=== PATIENT | male | born 1965 | race Caucasian/White ===

== ENCOUNTER 2017-06-04 09:47 | Emergency (ER) | payer SELFPAY ==
[~2017-06-04] VITALS: Ht 198.1 cm; Wt 149.4 kg
[~2017-06-04 09:47] MED LIST: GEODON20 MG PO; GEODON80 MG PO; LIDODERM 5% P1 PATCH TD; MOBIC7.5 MG PO; NAPROSYN500 MG PO; NAPROXEN500 MG PO; RISPERIDONE3 MG PO; TRAZODONE HCL50 MG PO; ZIPRASIDONE HCL80 MG PO
[2017-06-04 10:46] LABS: EOSINOPHIL (%) 2.5 % (0-5); EOSINOPHIL COUNT 0.2 K/uL (0-0.3); HEMATOCRIT 38.8 % (38.0-50.0); IMMATURE GRANULOCYTE (%) 0.2 % (0.0-0.7); INSTRUMENT ABS NEUTROPHIL CT 4.8 K/uL; LYMPHOCYTE COUNT 2.5 K/uL (1.0-2.8); MCH 26.6 PG (29.0-34.0); MCHC 32.5 G/DL (30.0-36.0); MEAN PLAT.VOLUME 11.5 uM^3 (9.0-12.4); MONOCYTE (%) 8.1 % (3-12); MONOCYTE COUNT 0.7 K/uL (0-0.8); NEUTROPHIL (%) 58.6 % (45-76); NEUTROPHIL COUNT 4.8 K/uL (1.8-6.4); PLATELET COUNT 201 K/uL (156-360); RBC DIS.WIDTH-CV 14.8 % (11.8-14.6); RBC DIS.WIDTH-SD 44.5 % (39-53); RED BLOOD COUNT 4.73 M/uL (4.00-5.50); WHITE BLOOD COUNT 8.2 K/uL (4.1-10.2)
[2017-06-04 10:55] LABS: CHLORIDE 110 mEq/L (99-109); POTASSIUM 3.2 mEq/L (3.7-5.4); SODIUM 139 mEq/L (136-147)
[2017-06-04 10:57] LABS: GLUCOSE 126 mg/dL (70-99)
[2017-06-04 10:58] LABS: ANION GAP 6 MEQ/L (2-14)
[2017-06-04 10:59] LABS: TOTAL BILIRUBIN 0.7 mg/dL (0.0-1.0)
[2017-06-04 11:00] LABS: SERUM ETHYL ALCOHOL < 10 mg/dL
[2017-06-04 11:01] LABS: ALKALINE PHOSPHATASE 68 IU/L (3-129); GFR ESTIMATE (CALCULATED) > 59 mL/min/
[2017-06-04 11:02] LABS: UREA NITROGEN (BUN) 10 mg/dL (9-23)
[2017-06-04 11:45] LABS: AMPHETAMINE NEGATIVE (500 ng/mL); BARBITURATES NEGATIVE (200 ng/mL); BENZODIAZEPINES NEGATIVE (150 ng/mL); COCAINE NEGATIVE (150 ng/mL); INTERNAL CONTROLS VALID? YES; METHADONE NEGATIVE (200 ng/mL); METHAMPHETAMINE NEGATIVE (500 ng/mL); OPIATES (MORPHINE) NEGATIVE (100 ng/mL); OXYCODONE NEGATIVE (100 ng/mL); PHENCYCLIDINE NEGATIVE (25 ng/mL); PROPOXYPHENE NEGATIVE (300 ng/mL); THC CANNABINOIDS NEGATIVE (50 ng/mL); TRICYCLIC ANTIDEPRESSANTS NEGATIVE (300 ng/mL)
[2017-06-04 11:53] VITALS: BP 156/79
== END 2017-06-04 11:56 | disposition home or self-care (01) ==
LOC: EME 09:47
PROVIDERS: Emergency Medicine
DX: E87.6 Hypokalemia (principal); R10.9 Unspecified abdominal pain
CPT/HCPCS: 74022; 80053; 85025; 99281; 99283; G0480

== ENCOUNTER 2017-06-17 13:06 | Inpatient (IN) | payer OTHER ==
[~2017-06-17] VITALS: Ht 198.1 cm; Wt 136.5 kg
[2017-06-17 15:05] LABS: BASOPHIL COUNT 0.1 K/uL (0-0.1); EOSINOPHIL (%) 0.5 % (0-5); HEMATOCRIT 44.5 % (38.0-50.0); IMMATURE GRANULOCYTE (%) 0.4 % (0.0-0.7); INSTRUMENT ABS NEUTROPHIL CT 4.7 K/uL; LYMPHOCYTE COUNT 2.7 K/uL (1.0-2.8); MCH 26.7 PG (29.0-34.0); MCHC 32.6 G/DL (30.0-36.0); MCV 81.8 FL (86-99); MEAN PLAT.VOLUME 11.3 uM^3 (9.0-12.4); MONOCYTE (%) 8.7 % (3-12); MONOCYTE COUNT 0.7 K/uL (0-0.8); NEUTROPHIL COUNT 4.7 K/uL (1.8-6.4); PLATELET COUNT 224 K/uL (156-360); RBC DIS.WIDTH-CV 15.1 % (11.8-14.6); RBC DIS.WIDTH-SD 45.1 % (39-53); RED BLOOD COUNT 5.44 M/uL (4.00-5.50); WHITE BLOOD COUNT 8.2 K/uL (4.1-10.2)
[2017-06-17 15:13] LABS: CHLORIDE 108 mEq/L (99-109); POTASSIUM 3.6 mEq/L (3.7-5.4); SODIUM 139 mEq/L (136-147)
[2017-06-17 15:15] LABS: GLUCOSE 122 mg/dL (70-99)
[2017-06-17 15:17] LABS: ANION GAP 12 MEQ/L (2-14)
[2017-06-17 15:18] LABS: SERUM ETHYL ALCOHOL < 10 mg/dL
[2017-06-17 15:19] LABS: GFR ESTIMATE (CALCULATED) > 59 mL/min/
[2017-06-17 15:21] LABS: UREA NITROGEN (BUN) 8 mg/dL (9-23)
[2017-06-17 15:22] LABS: SALICYLATE < 5.0 MG/DL (15-30)
[2017-06-17] MEDS ORDERED: FLUOXETINE HCL40 MG PO (15:28)
[2017-06-17] MEDS ORDERED: ZIPRASIDONE HCL60 MG PO (15:29)
[2017-06-17] MEDS ORDERED: GEODON80 MG PO (18:31)
[2017-06-17] MEDS ORDERED: PROMETHAZINE HC25 M1 PO (18:33)
[2017-06-17 19:03] VITALS: BP 131/83
[2017-06-18 07:53] VITALS: BP 127/72
[2017-06-18 15:58] VITALS: BP 119/56
[2017-06-19 07:41] VITALS: BP 107/50
[2017-06-19 15:27] VITALS: BP 97/54
[2017-06-19 18:23] VITALS: BP 123/67
[2017-06-20 07:42] VITALS: BP 123/72
[2017-06-20 15:35] VITALS: BP 110/63
[2017-06-21 07:43] VITALS: BP 129/87
[2017-06-21 15:13] VITALS: BP 123/56
[2017-06-22 08:09] VITALS: BP 142/72
[2017-06-22] MEDS ORDERED: GEODON80 MG PO (10:24)
[2017-06-22] MEDS ORDERED: PANTOPRAZOLE SO40 MG PO (10:24)
== END 2017-06-22 11:11 | disposition home or self-care (01) | DRG 885 ==
LOC: EME 13:06 → 1WEST 14:29 → EDOF 14:29 → ENRESERV 17:37 → 1WEST 17:46
PROVIDERS: Emergency Medicine
DX: F20.1 Disorganized schizophrenia (principal); M54.9 Dorsalgia, unspecified; Z91.14 Patient's other noncompliance with medication regimen; M25.569 Pain in unspecified knee; E66.01 Morbid (severe) obesity due to excess calories; Z68.37 Body mass index [BMI] 37.0-37.9, adult
CPT/HCPCS: 80048; 85025; 90837; 97150 GO; 97166 GO; 99281; 99285; G0480; J3486; Q0169

== ENCOUNTER 2017-06-23 23:08 | Emergency (ER) | payer OTHER ==
[~2017-06-23] VITALS: Ht 182.9 cm; Wt 153.0 kg
[~2017-06-23 23:08] MED LIST changes: +FLUOXETINE HCL40 MG PO; +PANTOPRAZOLE SO40 MG PO; +PROMETHAZINE HC25 M1 PO; +ZIPRASIDONE HCL60 MG PO
[2017-06-23 23:53] VITALS: BP 155/71
[2017-06-24 00:26] LABS: EOSINOPHIL (%) 0.8 % (0-5); EOSINOPHIL COUNT 0.1 K/uL (0-0.3); HEMATOCRIT 41.1 % (38.0-50.0); IMMATURE GRANULOCYTE (%) 0.3 % (0.0-0.7); INSTRUMENT ABS NEUTROPHIL CT 4.5 K/uL; MCH 26.8 PG (29.0-34.0); MCHC 32.8 G/DL (30.0-36.0); MCV 81.7 FL (86-99); MEAN PLAT.VOLUME 12.5 uM^3 (9.0-12.4); MONOCYTE (%) 8.7 % (3-12); MONOCYTE COUNT 0.6 K/uL (0-0.8); NEUTROPHIL (%) 62.5 % (45-76); NEUTROPHIL COUNT 4.5 K/uL (1.8-6.4); PLATELET COUNT 208 K/uL (156-360); RBC DIS.WIDTH-SD 45.1 % (39-53); RED BLOOD COUNT 5.03 M/uL (4.00-5.50); WHITE BLOOD COUNT 7.2 K/uL (4.1-10.2)
[2017-06-24 00:35] LABS: CHLORIDE 109 mEq/L (99-109); POTASSIUM 3.5 mEq/L (3.7-5.4); SODIUM 143 mEq/L (136-147)
[2017-06-24 00:37] LABS: GLUCOSE 135 mg/dL (70-99)
[2017-06-24 00:38] LABS: ANION GAP 14 MEQ/L (2-14)
[2017-06-24 00:40] LABS: SERUM ETHYL ALCOHOL < 10 mg/dL
[2017-06-24 00:41] LABS: GFR ESTIMATE (CALCULATED) > 59 mL/min/
[2017-06-24 00:43] LABS: UREA NITROGEN (BUN) 11 mg/dL (9-23)
[2017-06-24 00:44] LABS: SALICYLATE < 5.0 MG/DL (15-30)
== END 2017-06-24 01:11 | disposition home or self-care (01) ==
LOC: EME → EDBD 23:08 → EME 23:08
PROVIDERS: Emergency Medicine
DX: R10.9 Unspecified abdominal pain (principal); F29 Unspecified psychosis not due to a substance or known physiological condition; F20.9 Schizophrenia, unspecified; Z04.6 Encounter for general psychiatric examination, requested by authority
CPT/HCPCS: 80048; 85025; 90839; 99281; 99284; G0480

== ENCOUNTER 2017-07-06 11:25 | Emergency (ER) | payer OTHER ==
[~2017-07-06] VITALS: Ht 182.9 cm; Wt 142.9 kg
[2017-07-06] MEDS ORDERED: PREDNISONE10 MG PO (13:22)
[2017-07-06 14:13] VITALS: BP 120/82
== END 2017-07-06 14:15 | disposition home or self-care (01) ==
LOC: EME → EDBD 11:25 → EME 11:25
DX: M17.11 Unilateral primary osteoarthritis, right knee (principal)
CPT/HCPCS: 73564; 99281; 99284

== ENCOUNTER 2017-07-13 13:21 | Emergency (ER) | payer OTHER ==
[~2017-07-13] VITALS: Ht 185.4 cm; Wt 141.7 kg
[~2017-07-13 13:21] MED LIST changes: +PREDNISONE10 MG PO
[2017-07-13 14:42] LABS: ADD MIUA? YES; BILIRUBIN NEGATIVE; BLOOD NEGATIVE; COLOR AMBER ((YELLOW)); GLUCOSE (STRIP) NEGATIVE; KETONES NEGATIVE; LEUKOCYTES NEGATIVE; NITRITE NEGATIVE; PROTEIN (STRIP) 100; SPECIFIC GRAVITY 1.027 (1.000-1.030); UROBILINOGEN 0.2 MG/DL (0.2-1.0)
[2017-07-13 14:46] LABS: EOSINOPHIL (%) 0.8 % (0-5); EOSINOPHIL COUNT 0.1 K/uL (0-0.3); HEMATOCRIT 40.4 % (38.0-50.0); IMMATURE GRANULOCYTE (%) 0.3 % (0.0-0.7); INSTRUMENT ABS NEUTROPHIL CT 6.5 K/uL; LYMPHOCYTE COUNT 2.3 K/uL (1.0-2.8); MCH 26.4 PG (29.0-34.0); MCHC 33.2 G/DL (30.0-36.0); MCV 79.5 FL (86-99); MEAN PLAT.VOLUME 10.7 uM^3 (9.0-12.4); MONOCYTE (%) 7.2 % (3-12); MONOCYTE COUNT 0.7 K/uL (0-0.8); NEUTROPHIL (%) 67.4 % (45-76); NEUTROPHIL COUNT 6.5 K/uL (1.8-6.4); RBC DIS.WIDTH-CV 14.4 % (11.8-14.6); RBC DIS.WIDTH-SD 41.3 % (39-53); RED BLOOD COUNT 5.08 M/uL (4.00-5.50); WHITE BLOOD COUNT 9.7 K/uL (4.1-10.2)
[2017-07-13 14:47] LABS: CHLORIDE 108 mEq/L (99-109); PLATELET COUNT 285 K/uL (156-360); POTASSIUM 3.3 mEq/L (3.7-5.4); SODIUM 138 mEq/L (136-147)
[2017-07-13 14:50] LABS: GLUCOSE 112 mg/dL (70-99)
[2017-07-13 14:51] LABS: ANION GAP 13 MEQ/L (2-14); TOTAL BILIRUBIN 0.6 mg/dL (0.0-1.0)
[2017-07-13 14:52] LABS: SERUM ETHYL ALCOHOL < 10 mg/dL
[2017-07-13 14:53] LABS: ALKALINE PHOSPHATASE 81 IU/L (3-129); GFR ESTIMATE (CALCULATED) > 59 mL/min/
[2017-07-13 14:54] LABS: UREA NITROGEN (BUN) 13 mg/dL (9-23)
[2017-07-13 14:55] LABS: DIRECT BILIRUBIN 0.2 mg/dL (0.0-0.3)
[2017-07-13 14:55] LABS: BACTERIA RARE /HPF; CALCIUM OXALATE CRYSTALS 2+ /HPF; EPITHELIAL CELLS RARE /HPF; HYALINE CASTS 40-50 /LPF; MUCUS 4+ /LPF; RED BLOOD CELLS 0-5 /HPF (0-5)
[2017-07-13 15:04] LABS: AMPHETAMINE NEGATIVE (500 ng/mL); BARBITURATES NEGATIVE (200 ng/mL); BENZODIAZEPINES NEGATIVE (150 ng/mL); COCAINE NEGATIVE (150 ng/mL); INTERNAL CONTROLS VALID? YES; METHADONE NEGATIVE (200 ng/mL); METHAMPHETAMINE NEGATIVE (500 ng/mL); OPIATES (MORPHINE) NEGATIVE (100 ng/mL); OXYCODONE NEGATIVE (100 ng/mL); PHENCYCLIDINE NEGATIVE (25 ng/mL); PROPOXYPHENE NEGATIVE (300 ng/mL); THC CANNABINOIDS NEGATIVE (50 ng/mL); TRICYCLIC ANTIDEPRESSANTS NEGATIVE (300 ng/mL)
[2017-07-13] MEDS ORDERED: CIPRO500 MG PO (15:40)
[2017-07-13 16:37] VITALS: BP 123/84
== END 2017-07-13 16:50 | disposition home or self-care (01) ==
LOC: EME 13:21
PROVIDERS: Emergency Medicine
DX: N39.0 Urinary tract infection, site not specified (principal); F20.9 Schizophrenia, unspecified
CPT/HCPCS: 74022; 80048; 80076; 81003; 85025; 90839; 99281; 99284; G0480

== ENCOUNTER 2017-10-19 08:08 | Emergency (ER) | payer OTHER ==
[~2017-10-19] VITALS: Ht 188 cm; Wt 136.0 kg
[~2017-10-19 08:08] MED LIST changes: +CIPRO500 MG PO
[2017-10-19 09:06] LABS: HEMATOCRIT 45.5 % (38.0-50.0); HEMOGLOBIN 15.1 G/DL (12.5-16.6); MCH 27.5 PG (29.0-34.0); MCHC 33.2 G/DL (30.0-36.0); MCV 82.7 FL (86-99); PLATELET COUNT 212 K/uL (156-360); RBC DIS.WIDTH-CV 13.4 % (11.8-14.6); RBC DIS.WIDTH-SD 40.9 % (39-53); WHITE BLOOD COUNT 11.5 K/uL (4.1-10.2)
[2017-10-19 09:20] LABS: ALBUMIN 4.2 g/dL (3.2-4.8); CHLORIDE 107 mEq/L (99-109); POTASSIUM 2.9 mEq/L (3.7-5.4); SODIUM 141 mEq/L (136-147)
[2017-10-19 09:22] LABS: GLUCOSE 126 mg/dL (70-99); TOTAL PROTEIN 7.3 g/dL (6.4-8.3)
[2017-10-19 09:24] LABS: TOTAL BILIRUBIN 0.8 mg/dL (0.0-1.0)
[2017-10-19 09:25] LABS: SERUM ETHYL ALCOHOL < 10 mg/dL
[2017-10-19 09:26] LABS: ALKALINE PHOSPHATASE 74 IU/L (3-129); CREATININE 1.1 mg/dL (0.6-1.3); GFR ESTIMATE (CALCULATED) > 59 mL/min/ (58.99-99999)
[2017-10-19 09:27] LABS: AST (GOT) 37 IU/L (2-34); UREA NITROGEN (BUN) 8 mg/dL (9-23)
[2017-10-19 09:29] LABS: ALT (GPT) 29 IU/L (3-49)
[2017-10-19 14:23] LABS: APPEARANCE SL.HAZY ((CLEAR)); BILIRUBIN NEGATIVE; BLOOD NEGATIVE; COLOR YELLOW ((YELLOW)); GLUCOSE (STRIP) NEGATIVE; KETONES 20; LEUKOCYTES NEGATIVE; NITRITE NEGATIVE; PROTEIN (STRIP) 30; SPECIFIC GRAVITY 1.014 (1.000-1.030)
[2017-10-19 14:31] LABS: BACTERIA NONE SEEN /HPF; CALCIUM OXALATE CRYSTALS 1+ /HPF; EPITHELIAL CELLS RARE /HPF; MUCUS 2+ /LPF; RED BLOOD CELLS 0-5 /HPF (0-5); UCUL ADDED? NO; WHITE BLOOD CELLS 0-5 /HPF (0-5)
[2017-10-19 14:35] VITALS: BP 131/70
[2017-10-19 14:37] LABS: AMPHETAMINE NEGATIVE (500 ng/mL); BARBITURATES NEGATIVE (200 ng/mL); BENZODIAZEPINES PRESUMPTIVE POSITIVE (150 ng/mL); BUPRENORPHINE NEGATIVE (10 ng/mL); COCAINE NEGATIVE (150 ng/mL); METHADONE NEGATIVE (200 ng/mL); METHAMPHETAMINE NEGATIVE (500 ng/mL); OPIATES (MORPHINE) NEGATIVE (100 ng/mL); OXYCODONE NEGATIVE (100 ng/mL); PHENCYCLIDINE NEGATIVE (25 ng/mL); PROPOXYPHENE NEGATIVE (300 ng/mL); THC CANNABINOIDS NEGATIVE (50 ng/mL); TRICYCLIC ANTIDEPRESSANTS NEGATIVE (300 ng/mL)
[2017-10-19 15:11] LABS: BENZODIAZEPINES, URINE SCREEN Negative (200 ng/mL)
== END 2017-10-19 14:35 | disposition home or self-care (01) ==
LOC: EME 08:08
PROVIDERS: Emergency Medicine
DX: F20.9 Schizophrenia, unspecified (principal); F31.9 Bipolar disorder, unspecified
CPT/HCPCS: 80053; 81003; 84999; 85027; 90837; 99281; 99285; G0480; J1630; J2060

== ENCOUNTER 2017-11-05 07:47 | Inpatient (IN) | payer OTHER ==
[~2017-11-05] VITALS: Ht 188 cm; Wt 108.7 kg
[2017-11-05 08:15] LABS: HEMATOCRIT 41.9 % (38.0-50.0); HEMOGLOBIN 14.3 G/DL (12.5-16.6); MCH 27.9 PG (29.0-34.0); MCHC 34.1 G/DL (30.0-36.0); MCV 81.8 FL (86-99); PLATELET COUNT 206 K/uL (156-360); RBC DIS.WIDTH-CV 13.5 % (11.8-14.6); RBC DIS.WIDTH-SD 40.1 % (39-53); RED BLOOD COUNT 5.12 M/uL (4.00-5.50); WHITE BLOOD COUNT 10.6 K/uL (4.1-10.2)
[2017-11-05 08:29] LABS: ALBUMIN 4.1 g/dL (3.2-4.8); CHLORIDE 103 mEq/L (99-109); POTASSIUM 3.3 mEq/L (3.7-5.4); SODIUM 137 mEq/L (136-147)
[2017-11-05 08:31] LABS: GLUCOSE 124 mg/dL (70-99)
[2017-11-05 08:32] LABS: TOTAL PROTEIN 7.1 g/dL (6.4-8.3)
[2017-11-05 08:33] LABS: TOTAL BILIRUBIN 0.9 mg/dL (0.0-1.0)
[2017-11-05 08:34] LABS: SERUM ETHYL ALCOHOL < 10 mg/dL
[2017-11-05 08:36] LABS: ALKALINE PHOSPHATASE 87 IU/L (3-129)
[2017-11-05 08:37] LABS: AST (GOT) 36 IU/L (2-34); UREA NITROGEN (BUN) 8 mg/dL (9-23)
[2017-11-05 08:38] LABS: SALICYLATE < 5.0 MG/DL (15-30)
[2017-11-05 08:39] LABS: ACETAMINOPHEN (TYLENOL) < 10 mcg/mL (10-30); ALT (GPT) 28 IU/L (3-49); CREATINE KINASE 52 IU/L (1-294)
[2017-11-05 08:47] LABS: GFR ESTIMATE (CALCULATED) > 59 mL/min/ (58.99-99999)
[2017-11-06 10:30] LABS: HEMATOCRIT 39.6 % (38.0-50.0); HEMOGLOBIN 13.2 G/DL (12.5-16.6); MCH 27.4 PG (29.0-34.0); MCHC 33.3 G/DL (30.0-36.0); MCV 82.3 FL (86-99); PLATELET COUNT 177 K/uL (156-360); RBC DIS.WIDTH-CV 13.8 % (11.8-14.6); RBC DIS.WIDTH-SD 41.3 % (39-53); RED BLOOD COUNT 4.81 M/uL (4.00-5.50); WHITE BLOOD COUNT 6.6 K/uL (4.1-10.2)
[2017-11-06 11:02] LABS: CHLORIDE 105 mEq/L (99-109); POTASSIUM 3.3 mEq/L (3.7-5.4); SODIUM 139 mEq/L (136-147)
[2017-11-06 11:04] LABS: GLUCOSE 96 mg/dL (70-99)
[2017-11-06 11:08] LABS: CREATININE 0.7 mg/dL (0.6-1.3); GFR ESTIMATE (CALCULATED) > 59 mL/min/ (58.99-99999)
[2017-11-06 11:09] LABS: UREA NITROGEN (BUN) 8 mg/dL (9-23)
[2017-11-06 11:10] LABS: CREATINE KINASE 160 IU/L (1-294); TOTAL CK 160 IU/L (1-294)
[2017-11-06 11:16] LABS: CK-MB 0.6 ng/mL (0.0-4.9); CKMB RELATIVE INDEX 0.4 (0.0-3.9)
[2017-11-06 11:29] LABS: APPEARANCE CLEAR ((CLEAR)); BILIRUBIN NEGATIVE; BLOOD NEGATIVE; COLOR YELLOW ((YELLOW)); GLUCOSE (STRIP) NEGATIVE; KETONES 5; LEUKOCYTES NEGATIVE; NITRITE NEGATIVE; PROTEIN (STRIP) NEGATIVE; SPECIFIC GRAVITY 1.005 (1.000-1.030); UCUL ADDED? NO
[2017-11-06 11:44] LABS: AMPHETAMINE NEGATIVE (500 ng/mL); BARBITURATES NEGATIVE (200 ng/mL); BENZODIAZEPINES PRESUMPTIVE POSITIVE (150 ng/mL); BUPRENORPHINE NEGATIVE (10 ng/mL); COCAINE NEGATIVE (150 ng/mL); METHADONE NEGATIVE (200 ng/mL); METHAMPHETAMINE NEGATIVE (500 ng/mL); OPIATES (MORPHINE) NEGATIVE (100 ng/mL); OXYCODONE NEGATIVE (100 ng/mL); PHENCYCLIDINE NEGATIVE (25 ng/mL); PROPOXYPHENE NEGATIVE (300 ng/mL); THC CANNABINOIDS NEGATIVE (50 ng/mL); TRICYCLIC ANTIDEPRESSANTS NEGATIVE (300 ng/mL)
[2017-11-06 12:18] LABS: BENZODIAZEPINES, URINE SCREEN Negative (200 ng/mL)
[2017-11-06 18:27] VITALS: BP 117/55
[2017-11-06 19:04] VITALS: BP 117/55
[2017-11-07 12:25] VITALS: BP 128/60
[2017-11-07 15:39] VITALS: BP 114/56
[2017-11-08 07:33] VITALS: BP 110/56
[2017-11-08 15:58] VITALS: BP 110/55
[2017-11-09 07:31] VITALS: BP 138/69
[2017-11-09 16:09] VITALS: BP 161/72
[2017-11-15 08:05] VITALS: BP 114/69
[2017-11-15 14:57] VITALS: BP 99/57
[2017-11-16 07:54] VITALS: BP 111/67
[2017-11-16 16:00] VITALS: BP 111/54
[2017-11-17 07:35] VITALS: BP 156/70
[2017-11-17] MEDS ORDERED: ZIPRASIDONE HCL80 MG PO (08:47)
[2017-11-17] MEDS ORDERED: DIVALPROEX SOD500 MG PO (08:47)
== END 2017-11-17 09:32 | disposition home or self-care (01) | DRG 885 ==
LOC: EME 07:47 → EDBD 07:47 → EDOF 11-06 13:35 → 1WEST 11-06 13:35 → ENRESERV 11-06 18:20 → 1WEST 11-16 15:16
PROVIDERS: Emergency Medicine; Physician Assistant
PROC: 0HQNXZZ Repair Left Foot Skin, External Approach (ICD-10-PCS; principal; 2017-11-05)
DX: F20.0 Paranoid schizophrenia (principal); S91.112A Laceration without foreign body of left great toe without damage to nail, initial encounter; W45.8XXA Other foreign body or object entering through skin, initial encounter; Y92.488 Other paved roadways as the place of occurrence of the external cause; Z78.1 Physical restraint status; R45.850 Homicidal ideations; Z59.0 Homelessness; Z91.19 Patient's noncompliance with other medical treatment and regimen; F39 Unspecified mood [affective] disorder; F44.81 Dissociative identity disorder; M17.10 Unilateral primary osteoarthritis, unspecified knee; Z56.0 Unemployment, unspecified
CPT/HCPCS: 70450; 71045; 80048; 80053; 80164; 81003; 82550; 82553; 84999; 85027; 90837; 99281; 99285; G0480; J1200; J1630; J2060; J3230; J3486; Q0177

== ENCOUNTER 2018-01-20 16:36 | Inpatient (IN) | payer OTHER ==
[~2018-01-20] VITALS: Ht 190.5 cm; Wt 134.6 kg
[~2018-01-20 16:36] MED LIST changes: +DIVALPROEX SOD500 MG PO
[2018-01-20 20:24] VITALS: BP 121/57
[2018-01-22 08:03] VITALS: BP 118/56
== END 2018-01-22 11:07 | DRG 885 ==
LOC: EME 16:36 → EDOF 18:04 → 1WEST 18:04 → ENRESERV 20:16 → 1WEST 20:17
DX: F20.0 Paranoid schizophrenia (principal); R00.1 Bradycardia, unspecified; R55 Syncope and collapse; S01.112A Laceration without foreign body of left eyelid and periocular area, initial encounter; E66.9 Obesity, unspecified; Z91.14 Patient's other noncompliance with medication regimen; Z79.899 Other long term (current) drug therapy; Z68.37 Body mass index [BMI] 37.0-37.9, adult; Z87.11 Personal history of peptic ulcer disease
CPT/HCPCS: 70450; 70486; 90837; 93005; 97166 GO; 99281; 99285

== ENCOUNTER 2018-01-22 11:07 | Observation (INO) | payer OTHER ==
[~2018-01-22] VITALS: Ht 182.9 cm; Wt 130.4 kg
[2018-01-22 12:20] VITALS: BP 122/57
[2018-01-22 12:26] LABS: HEMATOCRIT 43.9 % (38.0-50.0); HEMOGLOBIN 14.3 G/DL (12.5-16.6); MCH 27.4 PG (29.0-34.0); MCHC 32.6 G/DL (30.0-36.0); MCV 84.3 FL (86-99); PLATELET COUNT 200 K/uL (156-360); RBC DIS.WIDTH-CV 13.2 % (11.8-14.6); RBC DIS.WIDTH-SD 40.9 % (39-53); RED BLOOD COUNT 5.21 M/uL (4.00-5.50)
[2018-01-22 13:04] LABS: TROP-I INTERPRETATION NEGATIVE; TROPONIN-I < 0.01 ng/mL (0.0-0.30)
[2018-01-22 13:27] LABS: CHLORIDE 105 MEQ/L (99-109); POTASSIUM 3.8 MEQ/L (3.7-5.4); SODIUM 140 MEQ/L (136-147)
[2018-01-22 13:32] LABS: CREATININE 0.7 MG/DL (0.6-1.3); GFR ESTIMATE (CALCULATED) > 59 mL/min/ (58.99-99999); GLUCOSE 107 mg/dL (70-99); UREA NITROGEN (BUN) 11 mg/dL (9-23)
[2018-01-22 16:24] VITALS: BP 116/54
[2018-01-22 19:10] VITALS: BP 120/62
[2018-01-22 19:11] LABS: TROP-I INTERPRETATION NEGATIVE; TROPONIN-I < 0.01 ng/mL (0.0-0.30)
[2018-01-22 23:21] VITALS: BP 134/58
[2018-01-23 01:21] LABS: TROP-I INTERPRETATION NEGATIVE; TROPONIN-I < 0.01 ng/mL (0.0-0.30)
[2018-01-23 04:25] VITALS: BP 130/60
[2018-01-23 06:03] LABS: BASOPHIL (%) 0.2 % (0-1); EOSINOPHIL (%) 0.7 % (0-5); EOSINOPHIL COUNT 0.1 K/uL (0-0.3); HEMATOCRIT 39.5 % (38.0-50.0); HEMOGLOBIN 12.9 G/DL (12.5-16.6); IMMATURE GRANULOCYTE (%) 0.1 % (0.0-0.7); LYMPHOCYTE (%) 35.3 % (15-42); MCHC 32.7 G/DL (30.0-36.0); MCV 82.8 FL (86-99); MONOCYTE (%) 6.9 % (3-12); MONOCYTE COUNT 0.6 K/uL (0-0.8); NEUTROPHIL (%) 56.8 % (45-76); NEUTROPHIL COUNT 4.8 K/uL (1.8-6.4); PLATELET COUNT 187 K/uL (156-360); RBC DIS.WIDTH-CV 13.5 % (11.8-14.6); RBC DIS.WIDTH-SD 40.7 % (39-53); RED BLOOD COUNT 4.77 M/uL (4.00-5.50); WHITE BLOOD COUNT 8.5 K/uL (4.1-10.2)
[2018-01-23 06:30] LABS: CHLORIDE 107 MEQ/L (99-109); CREATININE 0.7 MG/DL (0.6-1.3); GFR ESTIMATE (CALCULATED) > 59 mL/min/ (58.99-99999); GLUCOSE 95 mg/dL (70-99); POTASSIUM 3.6 MEQ/L (3.7-5.4); SODIUM 140 MEQ/L (136-147); UREA NITROGEN (BUN) 8 mg/dL (9-23)
[2018-01-23 07:46] VITALS: BP 117/60
[2018-01-23 19:18] VITALS: BP 137/60
[2018-01-23 23:24] VITALS: BP 120/57
[2018-01-24 03:57] VITALS: BP 109/52
[2018-01-24 09:25] VITALS: BP 117/72
[2018-01-24 11:59] VITALS: BP 164/74
[2018-01-24 16:45] VITALS: BP 151/67
== END 2018-01-24 18:42 | disposition short-term general hospital (02) ==
LOC: 5WEST 11:07 → EDSTATUS 11:12 → ENRESERV 11:15 → 5WEST 11:47
PROVIDERS: Hospitalist
DX: R55 Syncope and collapse (principal); R00.1 Bradycardia, unspecified; S01.81XA Laceration without foreign body of other part of head, initial encounter; S02.612A Fracture of condylar process of left mandible, initial encounter for closed fracture; F31.9 Bipolar disorder, unspecified; F20.9 Schizophrenia, unspecified; Z91.14 Patient's other noncompliance with medication regimen; W19.XXXA Unspecified fall, initial encounter; Y93.89 Activity, other specified; Y92.231 Patient bathroom in hospital as the place of occurrence of the external cause
CPT/HCPCS: 80048; 84484; 85025; 85027; 93306; G0378; J7030

== ENCOUNTER 2018-01-26 10:29 | Inpatient (IN) | payer OTHER ==
[2018-01-26 15:38] VITALS: BP 118/57
[2018-01-26 15:45] VITALS: BP 118/57
[2018-01-26] MEDS ORDERED: DEPAKOTE500 MG PO (15:57)
[2018-01-26] MEDS ORDERED: ROXICODONE5 MG PO (15:59)
[2018-01-26] MEDS ORDERED: PERIDEX473 ML PO (16:04)
[2018-01-27 07:22] VITALS: BP 137/66
[2018-01-27 15:36] VITALS: BP 114/53
[2018-01-28 07:44] VITALS: BP 106/59
[2018-01-29 07:48] VITALS: BP 118/56
[2018-01-29 15:28] VITALS: BP 107/51
[2018-01-30 07:30] VITALS: BP 120/81
[2018-01-30 15:41] VITALS: BP 116/53
[2018-01-31 07:29] VITALS: BP 102/66
[2018-01-31 15:56] VITALS: BP 100/52
[2018-02-01 08:06] VITALS: BP 128/80
[2018-02-01] MEDS ORDERED: ROXICODONE5 MG PO (09:45)
[2018-02-01] MEDS ORDERED: DIVALPROEX SOD500 MG PO (09:45)
[2018-02-01] MEDS ORDERED: ZIPRASIDONE HCL80 MG PO (09:45)
[2018-02-01] MEDS ORDERED: DOCUSATE SODIU100 MG PO (09:45)
[2018-02-01] MEDS ORDERED: PERIDEX473 ML PO (09:45)
== END 2018-02-01 13:51 | disposition home or self-care (01) | DRG 885 ==
LOC: 1WEST 10:29
DX: F20.9 Schizophrenia, unspecified (principal); Z91.19 Patient's noncompliance with other medical treatment and regimen; Z91.14 Patient's other noncompliance with medication regimen; Z87.11 Personal history of peptic ulcer disease
CPT/HCPCS: 80164; 97150 GO; 97165 GO

== ENCOUNTER 2018-02-05 11:43 | Inpatient (IN) | payer OTHER ==
[~2018-02-05] VITALS: Ht 193 cm; Wt 133.0 kg
[~2018-02-05 11:43] MED LIST changes: +DEPAKOTE500 MG PO; +DOCUSATE SODIU100 MG PO; +PERIDEX473 ML PO; +ROXICODONE5 MG PO
[2018-02-05 12:26] LABS: BASOPHIL (%) 0.8 % (0-1); BASOPHIL COUNT 0.1 K/uL (0-0.1); EOSINOPHIL (%) 1.8 % (0-5); EOSINOPHIL COUNT 0.1 K/uL (0-0.3); HEMATOCRIT 39.4 % (38.0-50.0); HEMOGLOBIN 12.8 G/DL (12.5-16.6); IMMATURE GRANULOCYTE (%) 0.4 % (0.0-0.7); LYMPHOCYTE (%) 26.8 % (15-42); MCH 27.4 PG (29.0-34.0); MCHC 32.5 G/DL (30.0-36.0); MCV 84.4 FL (86-99); MONOCYTE (%) 13.3 % (3-12); NEUTROPHIL (%) 56.9 % (45-76); NEUTROPHIL COUNT 4.1 K/uL (1.8-6.4); PLATELET COUNT 203 K/uL (156-360); RBC DIS.WIDTH-CV 13.7 % (11.8-14.6); RBC DIS.WIDTH-SD 42.6 % (39-53); RED BLOOD COUNT 4.67 M/uL (4.00-5.50); WHITE BLOOD COUNT 7.3 K/uL (4.1-10.2)
[2018-02-05 12:36] LABS: ALBUMIN 3.9 g/dL (3.2-4.8)
[2018-02-05 12:37] LABS: CHLORIDE 108 mEq/L (99-109); POTASSIUM 3.8 mEq/L (3.7-5.4); SODIUM 142 mEq/L (136-147)
[2018-02-05 12:39] LABS: GLUCOSE 101 mg/dL (70-99); TOTAL PROTEIN 6.7 g/dL (6.4-8.3)
[2018-02-05 12:41] LABS: TOTAL BILIRUBIN 0.4 mg/dL (0.0-1.0)
[2018-02-05 12:42] LABS: ALKALINE PHOSPHATASE 100 IU/L (3-129); SERUM ETHYL ALCOHOL < 10 mg/dL
[2018-02-05 12:43] LABS: CREATININE 0.8 mg/dL (0.6-1.3); GFR ESTIMATE (CALCULATED) > 59 mL/min/ (58.99-99999)
[2018-02-05 12:44] LABS: AST (GOT) 20 IU/L (2-34); UREA NITROGEN (BUN) 3 mg/dL (9-23)
[2018-02-05 12:46] LABS: ALT (GPT) 15 IU/L (3-49)
[2018-02-05 13:39] LABS: AMPHETAMINE NEGATIVE (500 ng/mL); BARBITURATES NEGATIVE (200 ng/mL); BENZODIAZEPINES NEGATIVE (150 ng/mL); BUPRENORPHINE NEGATIVE (10 ng/mL); COCAINE NEGATIVE (150 ng/mL); METHADONE NEGATIVE (200 ng/mL); METHAMPHETAMINE NEGATIVE (500 ng/mL); OPIATES (MORPHINE) NEGATIVE (100 ng/mL); OXYCODONE NEGATIVE (100 ng/mL); PHENCYCLIDINE NEGATIVE (25 ng/mL); PROPOXYPHENE NEGATIVE (300 ng/mL); THC CANNABINOIDS NEGATIVE (50 ng/mL); TRICYCLIC ANTIDEPRESSANTS NEGATIVE (300 ng/mL)
[2018-02-05 19:23] VITALS: BP 127/67
[2018-02-06 16:19] VITALS: BP 13/64
[2018-02-07 08:37] VITALS: BP 119/58
[2018-02-07 22:09] VITALS: BP 122/58
[2018-02-08 07:52] VITALS: BP 127/66
[2018-02-08 15:33] VITALS: BP 130/62
[2018-02-09 07:50] VITALS: BP 115/68
[2018-02-09 15:28] VITALS: BP 107/53
[2018-02-10 07:48] VITALS: BP 117/57
[2018-02-10 16:04] VITALS: BP 108/54
[2018-02-11 08:16] VITALS: BP 110/57
[2018-02-11 16:04] VITALS: BP 113/56
[2018-02-12 07:58] VITALS: BP 118/58
[2018-02-12 15:47] VITALS: BP 110/56
[2018-02-13 07:47] VITALS: BP 116/55
[2018-02-13 15:36] VITALS: BP 106/51
[2018-02-14 07:57] VITALS: BP 108/49
[2018-02-14 15:50] VITALS: BP 111/56
[2018-02-15 07:58] VITALS: BP 121/59
[2018-02-15 16:00] VITALS: BP 121/53
[2018-02-16 07:54] VITALS: BP 123/55
[2018-02-16 15:49] VITALS: BP 140/61
[2018-02-17 07:47] VITALS: BP 112/59
[2018-02-17 15:17] VITALS: BP 123/57
[2018-02-18 08:22] VITALS: BP 110/61
[2018-02-18] MEDS ORDERED: SEROQUEL300 MG PO (09:50)
[2018-02-18] MEDS ORDERED: GEODON80 MG PO (10:00)
[2018-02-18] MEDS ORDERED: QUETIAPINE FUM300 MG PO (10:01)
== END 2018-02-18 11:24 | disposition home or self-care (01) | DRG 885 ==
LOC: EME 11:43 → EDOF 14:27 → 1WEST 14:27 → ENRESERV 19:15 → 1WEST 19:15
PROVIDERS: Emergency Medicine
DX: F20.9 Schizophrenia, unspecified (principal); Z91.14 Patient's other noncompliance with medication regimen; Z91.81 History of falling; Z87.891 Personal history of nicotine dependence; Z59.0 Homelessness; S00.11XA Contusion of right eyelid and periocular area, initial encounter
CPT/HCPCS: 80053; 85025; 90837; 97150 GO; 97165 GO; 99281; 99285; G0480

== ENCOUNTER 2018-05-18 04:59 | Emergency (ER) | payer OTHER ==
[~2018-05-18] VITALS: Ht 198.1 cm; Wt 135.2 kg
[~2018-05-18 04:59] MED LIST changes: +QUETIAPINE FUM300 MG PO; +SEROQUEL300 MG PO
[2018-05-18 05:19] VITALS: BP 143/91
== END 2018-05-18 05:20 | disposition home or self-care (01) ==
LOC: EME 04:59
DX: Z00.00 Encounter for general adult medical examination without abnormal findings (principal)
CPT/HCPCS: 99281; 99282

== ENCOUNTER 2018-05-18 12:37 | Inpatient (IN) | payer OTHER ==
[~2018-05-18] VITALS: Ht 198.1 cm; Wt 128.7 kg
[2018-05-18 14:18] LABS: HEMATOCRIT 35.3 % (38.0-50.0); MCV 82.3 FL (86-99); PLATELET COUNT 169 K/uL (156-360); RBC DIS.WIDTH-CV 14.6 % (11.8-14.6); RBC DIS.WIDTH-SD 43.7 % (39-53); RED BLOOD COUNT 4.29 M/uL (4.00-5.50)
[2018-05-18 14:29] LABS: ALBUMIN 3.7 g/dL (3.2-4.8); CHLORIDE 111 mEq/L (99-109); POTASSIUM 3.8 mEq/L (3.7-5.4); SODIUM 141 mEq/L (136-147)
[2018-05-18 14:31] LABS: GLUCOSE 99 mg/dL (70-99); TOTAL PROTEIN 6.4 g/dL (6.4-8.3)
[2018-05-18 14:32] LABS: APPEARANCE TURBID ((CLEAR)); BILIRUBIN NEGATIVE; BLOOD NEGATIVE; COLOR AMBER ((YELLOW)); GLUCOSE (STRIP) NEGATIVE; KETONES 5; LEUKOCYTES NEGATIVE; NITRITE NEGATIVE; PROTEIN (STRIP) 30; SPECIFIC GRAVITY 1.026 (1.000-1.030)
[2018-05-18 14:33] LABS: TOTAL BILIRUBIN 1.1 mg/dL (0.0-1.0)
[2018-05-18 14:34] LABS: SERUM ETHYL ALCOHOL < 10 mg/dL
[2018-05-18 14:35] LABS: ALKALINE PHOSPHATASE 69 IU/L (3-129); CREATININE 0.8 mg/dL (0.6-1.3); GFR ESTIMATE (CALCULATED) > 59 mL/min/ (58.99-99999)
[2018-05-18 14:36] LABS: UREA NITROGEN (BUN) 12 mg/dL (9-23)
[2018-05-18 14:37] LABS: AST (GOT) 38 IU/L (2-34)
[2018-05-18 14:38] LABS: ALT (GPT) 23 IU/L (3-49)
[2018-05-18 14:55] LABS: AMPHETAMINE NEGATIVE (500 ng/mL); BARBITURATES NEGATIVE (200 ng/mL); BENZODIAZEPINES NEGATIVE (150 ng/mL); BUPRENORPHINE NEGATIVE (10 ng/mL); COCAINE NEGATIVE (150 ng/mL); METHADONE NEGATIVE (200 ng/mL); METHAMPHETAMINE NEGATIVE (500 ng/mL); OPIATES (MORPHINE) NEGATIVE (100 ng/mL); OXYCODONE NEGATIVE (100 ng/mL); PHENCYCLIDINE NEGATIVE (25 ng/mL); PROPOXYPHENE NEGATIVE (300 ng/mL); THC CANNABINOIDS NEGATIVE (50 ng/mL); TRICYCLIC ANTIDEPRESSANTS NEGATIVE (300 ng/mL)
[2018-05-18 14:58] LABS: RED BLOOD CELLS NONE SEEN /HPF (0-5)
[2018-05-18 14:59] LABS: AMORPHOUS URATES CRYSTALS 3+; BACTERIA NONE SEEN /HPF; EPITHELIAL CELLS RARE /HPF; MUCUS NONE SEEN /LPF; UCUL ADDED? NO; WHITE BLOOD CELLS NONE SEEN /HPF (0-5)
[2018-05-18 17:41] VITALS: BP 126/60
[2018-05-18 17:46] VITALS: BP 126/60
[2018-05-19 08:04] VITALS: BP 139/71
[2018-05-19 15:17] VITALS: BP 115/56
[2018-05-20 16:06] VITALS: BP 112/56
[2018-05-21 07:43] VITALS: BP 106/56
[2018-05-21 16:16] VITALS: BP 115/54
[2018-05-22 07:44] VITALS: BP 118/59
[2018-05-22 15:17] VITALS: BP 120/58
[2018-05-23 07:45] VITALS: BP 98/54
[2018-05-23 15:18] VITALS: BP 95/53
[2018-05-24 07:44] VITALS: BP 88/54
[2018-05-24 16:33] VITALS: BP 107/57
[2018-05-25 07:48] VITALS: BP 105/55
[2018-05-25 16:13] VITALS: BP 98/63
[2018-05-25 21:27] VITALS: BP 107/65
[2018-05-26 07:54] VITALS: BP 114/63
[2018-05-26 16:15] VITALS: BP 127/60
[2018-05-27 07:57] VITALS: BP 104/51
[2018-05-27 16:06] VITALS: BP 112/57
[2018-05-28 08:57] VITALS: BP 100/63
[2018-05-28 16:41] VITALS: BP 109/52
[2018-05-29 08:12] VITALS: BP 110/56
[2018-05-29 15:21] VITALS: BP 110/52
[2018-05-30 07:52] VITALS: BP 113/60
[2018-05-30 17:06] VITALS: BP 87/55
[2018-05-31 07:32] VITALS: BP 114/59
[2018-05-31 16:42] VITALS: BP 105/62
[2018-06-01 07:44] VITALS: BP 105/81
[2018-06-01 16:23] VITALS: BP 112/57
[2018-06-02 08:02] VITALS: BP 98/48
[2018-06-02] MEDS ORDERED: DIVALPROEX SOD500 MG PO (08:52)
[2018-06-02] MEDS ORDERED: QUETIAPINE FUM300 MG PO (08:52)
== END 2018-06-02 14:24 | disposition home or self-care (01) | DRG 885 ==
LOC: EME 12:37 → 1WEST 15:00 → EDOF 15:00 → ENRESERV 17:38 → 1WEST 17:38
PROVIDERS: Emergency Medicine
DX: F20.0 Paranoid schizophrenia (principal); R45.851 Suicidal ideations; H44.003 Unspecified purulent endophthalmitis, bilateral; E66.01 Morbid (severe) obesity due to excess calories; Z68.31 Body mass index [BMI] 31.0-31.9, adult; Z91.14 Patient's other noncompliance with medication regimen; Z59.0 Homelessness
CPT/HCPCS: 80053; 81003; 85027; 90837; 97150 GO; 97166 GO; 99281; 99282; 99285; G0480; J3230